=== PATIENT | female | born 1935 | race Caucasian/White ===

== ENCOUNTER 2017-03-02 09:45 | Day surgery (SDC) | payer MEDICARE, OTHER, MEDICAID ==
[~2017-03-02] VITALS: Ht 165.1 cm; Wt 73.5 kg
[~2017-03-02 09:45] MED LIST: ARIMIDEX1 M1 PO; ASPIRIN EC81 MG PO; ATIVAN 1 MG1 MG PO; BENADRYL25 MG PO; CALCIUM + VITA1 EACH PO; CALCIUM 600 +1 EAC7 PO; CARAFATE1 GM PO; COLAZAL 750 MG750 MG PO; COMPLETE MULTI1 EAC2 PO; CONSTULOSE10 GM/15 M PO; COREG25 MG PO; COZAAR100 MG PO; ENULOSE UD L30 ML/EA PO; GAS RELIEF 8080 MG PO; IMODIUM2 MG PO; LEVOTHROID (SY50 MCG PO; NEURONTIN100 MG PO; NIACIN CONTROL500 MG PO; NIACIN ER500 MG PO; NORVASC5 MG PO; OMEPRAZOLE20 MG PO; PEPCID20 MG PO; POTASSIUM CHLO20 ME2 PO; PRAVACHOL80 MG PO; REGLAN10 MG PO; ROLAIDS CHEWAB1 EACH PO; STOOL SOFTENER100 MG PO; TYLENOL EXTRA500 MG PO; ULTRAM50 MG PO; ZOLOFT50 MG PO
== END 2017-03-02 12:50 | disposition disaster alternative care site (69) ==
LOC: GEND 09:45 → GSIP 09:45 → GPOC 10:00 → GEND 12:50
PROC: 0DB68ZX Excision of Stomach, Via Natural or Artificial Opening Endoscopic, Diagnostic (ICD-10-PCS; principal; 2017-03-02)
PROC: 0DB88ZX Excision of Small Intestine, Via Natural or Artificial Opening Endoscopic, Diagnostic (ICD-10-PCS; 2017-03-02)
PROC: 0DBE8ZX Excision of Large Intestine, Via Natural or Artificial Opening Endoscopic, Diagnostic (ICD-10-PCS; 2017-03-02)
DX: K29.50 Unspecified chronic gastritis without bleeding (principal); D72.820 Lymphocytosis (symptomatic); K57.30 Diverticulosis of large intestine without perforation or abscess without bleeding; K64.8 Other hemorrhoids; E78.00 Pure hypercholesterolemia, unspecified; I10 Essential (primary) hypertension; F32.9 Major depressive disorder, single episode, unspecified; F41.9 Anxiety disorder, unspecified; K21.9 Gastro-esophageal reflux disease without esophagitis; M19.90 Unspecified osteoarthritis, unspecified site; Z88.0 Allergy status to penicillin; Z88.8 Allergy status to other drugs, medicaments and biological substances; Z79.899 Other long term (current) drug therapy; Z79.82 Long term (current) use of aspirin; Z79.891 Long term (current) use of opiate analgesic
CPT/HCPCS: J2001; J7030